=== PATIENT | female | born 1990 | race Caucasian/White ===

== ENCOUNTER 2016-07-23 05:50 | Emergency (ER) | payer MEDICAID, OTHER ==
[~2016-07-23] VITALS: Ht 162.6 cm; Wt 68.1 kg
[~2016-07-23 05:50] MED LIST: BENT20TA PO; IMIT25TA PO; ZOFR4TAB3 SL
[2016-07-23 05:55] VITALS: BP 111/78; PULSE 84; RESP 14; TEMP 98.3; O2SAT 98
[2016-07-23 06:01] VITALS: BP 111/78; PULSE 84; RESP 18; TEMP 98.3; O2SAT 98
[2016-07-23] MEDS ORDERED: SODIUM CHLOR 0.9% 1000 ML INJ 1,000 ML IV SCH (06:03)
--- NOTE | 2016-07-23 06:06 | PD ---
HPI Chief Complaint: GI Complaint Time Seen by Provider: 05:59 Travel History International Travel<30 days: No Contact w/Intl Traveler<30days: No Traveled to known affect area: No History of Present Illness HPI Patient is a 26 year old female who comes in complaining of nausea and vomiting. She says it started at 1AM and she has not been able to stop vomiting since then. She says she has no other symptoms. She denies abdominal pain, fevers, chills, diarrhea. She says her last bowel movement was last night and it was normal. She says this happens to her about once a year. She has been here before and had repeated episodes of leukocytosis. She saw hematology and they could not find a reason for this. She has no other medical issues. LMP was July 09. She denies dysuria. PFSH Past Medical History Arthritis: No Autoimmune Disease: No Blood Disorders: No Anxiety: No Depression: No Cancer: No Cardiovascular Problems: No Chemotherapy: No Cerebrovascular Accident: No Diabetes: No Diminished Hearing: No Endocrine: No Gastrointestinal Disorders: No GERD: No Glaucoma: No Genitourinary: No Hepatitis: No Hiatal Hernia: No Heparin Induced Thrombocytopen: No Hypertension: No Immune Disorder: No Implanted Vascular Access Dvce: No Kidney Stones: No Medical other: Yes (MIGRAINES) Musculoskeletal: No Psychiatric: No Reproductive: No Respiratory: No Migraines: Yes Radiation Therapy: No Renal Failure: No Sickle Cell Disease: No Thyroid Disease: No Ulcer: No Tetanus Vaccination: < 5 Years Influenza Vaccination: Yes ?: Unknown LMP: 07/09/16 Past Surgical History Abdominal Surgery: No AICD: No Appendectomy: Yes Arteriovenous Shunt: No Cardiac Surgery: No Cholecystectomy: No Ear Surgery: No Endocrine Surgery: No Eye Surgery: No Genitourinary Surgery: No Gynecologic Surgery: No Insulin Pump: No Joint Replacement: No Neurologic Surgery: No Oral Surgery: Yes (WISDOM TEETH REMOVED) Pacemaker: No Thoracic Surgery: No Tonsillectomy: Yes Other Surgery: Yes (SURGERY LT EYEBROW.) Social History Alcohol Use: Yes (occasionally) Tobacco Use: No Substance Use: No Allergies-Medications (Allergen,Severity, Reaction): Coded Allergies: Avocado (Verified Allergy, Severe, Anaphylaxis, 07/23/16) Reported Meds & Prescriptions Reported Meds & Active Scripts Active Zofran Odt (Ondansetron Odt) 4 Mg Tab 4 Mg SL Q6HR PRN Review of Systems Except as stated in HPI: all other systems reviewed are Neg General / Constitutional: No: Fever, Chills HENT: No: Headaches, Lightheadedness Cardiovascular: No: Chest Pain or Discomfort Respiratory: No: Shortness of Breath Gastrointestinal: Positive: Nausea, Vomiting, No: Diarrhea, Abdominal Pain Genitourinary: No: Dysuria Skin: No Rash, No Change in Pigmentation Neurologic: No: Weakness, Dizziness Physical Exam Narrative GENERAL: Awake and alert, in no acute distress. SKIN: Focused skin assessment warm/dry. HEAD: Atraumatic. Normocephalic. EYES: Pupils equal and round. No scleral icterus. ENT: Mucous membranes pink and moist. NECK: Trachea midline. No JVD. CARDIOVASCULAR: Regular rate and rhythm. No murmur appreciated. RESPIRATORY: No accessory muscle use. Clear to auscultation. Breath sounds equal bilaterally. GASTROINTESTINAL: Abdomen soft, non-tender, nondistended. No CVA tenderness. MUSCULOSKELETAL: No obvious deformities. No clubbing. No cyanosis. No edema. NEUROLOGICAL: Awake and alert. No obvious cranial nerve deficits. Motor grossly within normal limits. Normal speech. PSYCHIATRIC: Appropriate mood and affect; insight and judgment normal. Data Data Last Documented VS Vital Signs Date Time Temp Pulse Resp B/P Pulse Ox O2 Delivery O2 Flow Rate FiO2 07/23/16 08:10 65 18 98/50 98 07/23/16 06:07 Room Air 07/23/16 06:01 98.3 Orders Complete Blood Count With Diff (07/23/16 06:03) Comprehensive Metabolic Panel (07/23/16 06:03) Urinalysis - C+S If Indicated (07/23/16 06:03) Ua Includes Microscopic (07/23/16 06:03) Iv Access Insert/Monitor (07/23/16 06:03) Ecg Monitoring (07/23/16 06:03) Oximetry (07/23/16 06:03) Ondansetron Inj (Zofran Inj) (07/23/16 06:15) Sodium Chlor 0.9% 1000 Ml Inj (Ns 1000 M (07/23/16 06:03) Sodium Chloride 0.9% Flush (Ns Flush) (07/23/16 06:15) Ed Urine Pregnancytest Poc (07/23/16 06:03) Lipase (07/23/16 06:03) Ondansetron Inj (Zofran Inj) (07/23/16 07:15) Labs Laboratory Tests Test 07/23/16 07/23/16 06:15 06:50 White Blood Count 15.1 TH/MM3 Red Blood Count 5.17 MIL/MM3 Hemoglobin 14.6 GM/DL Hematocrit 44.0 % Mean Corpuscular Volume 85.1 FL Mean Corpuscular Hemoglobin 28.3 PG Mean Corpuscular Hemoglobin 33.3 % Concent Red Cell Distribution Width 13.0 % Platelet Count 317 TH/MM3 Mean Platelet Volume 8.2 FL Neutrophils (%) (Auto) 83.0 % Lymphocytes (%) (Auto) 9.8 % Monocytes (%) (Auto) 5.1 % Eosinophils (%) (Auto) 1.7 % Basophils (%) (Auto) 0.4 % Neutrophils # (Auto) 12.4 TH/MM3 Lymphocytes # (Auto) 1.5 TH/MM3 Monocytes # (Auto) 0.8 TH/MM3 Eosinophils # (Auto) 0.3 TH/MM3 Basophils # (Auto) 0.1 TH/MM3 CBC Comment AUTO DIFF Differential Comment AUTO DIFF CONFIRMED Sodium Level 144 MEQ/L Potassium Level 3.7 MEQ/L Chloride Level 108 MEQ/L Carbon Dioxide Level 28.4 MEQ/L Anion Gap 8 MEQ/L Blood Urea Nitrogen 12 MG/DL Creatinine 0.72 MG/DL Estimat Glomerular Filtration 98 ML/MIN Rate Random Glucose 121 MG/DL Calcium Level 9.3 MG/DL Total Bilirubin 0.2 MG/DL Aspartate Amino Transf 13 U/L (AST/SGOT) Alanine Aminotransferase 23 U/L (ALT/SGPT) Alkaline Phosphatase 81 U/L Total Protein 7.4 GM/DL Albumin 3.8 GM/DL Lipase 169 U/L Urine Collection Type CLEAN CATCH Urine Color YELLOW Urine Turbidity SLIGHT Urine pH 8.0 Urine Specific [place] 1.019 Urine Protein NEG mg/dL Urine Glucose (UA) NEG mg/dL Urine Ketones NEG mg/dL Urine Occult Blood NEG Urine Nitrite NEG Urine Bilirubin NEG Urine Leukocyte Esterase NEG Urine Squamous Epithelial 0-5 /hpf Cells Urine Amorphous Sediment MOD Microscopic Urinalysis Comment CULT NOT INDICATED Urine Collection Time 0650 MDM Medical Decision Making Medical Screen Exam Complete: Yes Emergency Medical Condition: Yes Medical Record Reviewed: Yes Differential Diagnosis Gastroenteritis versus gastritis versus pancreatitis Narrative Course Patient is a 26-year-old female comes in complaining of nausea and vomiting that started this morning. Exam shows no acute abnormalities, abdomen is soft and nontender. IV established, labs sent. Patient given IV fluids, Zofran. Labs show an elevated white blood cell count of 15, no other acute abnormalities. Patient still feeling nauseous. Given additional Zofran. Signed out to Dr. Munoz to assess for resolution of symptoms. Diagnosis Primary Impression: Nausea & vomiting Qualified Code: R11.2 - Non-intractable vomiting with nausea, unspecified vomiting type Patient Instructions: Acute Nausea and Vomiting (ED), General Instructions Additional Instructions: Drink plenty of fluids. If he fell hungry, eating a bland diet. Take Zofran as needed for nausea. Follow-up with your primary care doctor. Return to the ED as needed for any worsening symptoms. Scripts Ondansetron Odt (Zofran Odt)4 Mg Tab4 Mg SL Q6HR PRN (Nausea/Vomiting) #10 TAB Ref 0 Prov:Lucy Peacock MD 07/23/16 Disposition: 01 DISCHARGE HOME Condition: Stable Lucy Peacock MD Jul 23, 2016 06:06
[2016-07-23 06:07] VITALS: RESP 18; O2SAT 98
[2016-07-23] MEDS ORDERED: SODIUM CHLORIDE 0.9% FLUSH 10 ML FLUSH IV FLUSH PRN (06:15)
[2016-07-23] MEDS ORDERED: ONDANSETRON HCL 4 MG/2 ML VIAL IVP ONE (06:15)
[2016-07-23 06:31] LABS: AUTOMATED NEUTROPHIL # 12.4 TH/MM3 (1.8-7.7); BASOPHIL # 0.1 TH/MM3 (0-0.2); BASOPHIL % 0.4 % (0.0-2.0); EOSINOPHIL # 0.3 TH/MM3 (0-0.4); EOSINOPHIL % 1.7 % (0.0-4.0); LYMPH % 9.8 % (9.0-44.0); LYMPHOCYTE # 1.5 TH/MM3 (1.0-4.8); MEAN CELL VOLUME 85.1 FL (80.0-100.0); MEAN CORPUSCULAR HEMOGLOBIN 28.3 PG (27.0-34.0); MEAN CORPUSCULAR HGB CONC 33.3 % (32.0-36.0); MONO % 5.1 % (0.0-8.0); PLATELET COUNT 317 TH/MM3 (150-450); RED BLOOD COUNT 5.17 MIL/MM3 (4.00-5.30); WHITE BLOOD COUNT 15.1 TH/MM3 (4.0-11.0)
[2016-07-23 06:34] LABS: HEMO FLAGS AUTO DIFF
[2016-07-23 06:35] LABS: CHLORIDE 108 MEQ/L (98-107); POTASSIUM 3.7 MEQ/L (3.5-5.1); SODIUM (NA) 144 MEQ/L (136-145)
[2016-07-23 06:39] LABS: ANION GAP 8 MEQ/L (5-15); BICARBONATE 28.4 MEQ/L (21.0-32.0)
[2016-07-23 06:40] LABS: BLOOD UREA NITROGEN 12 MG/DL (7-18)
[2016-07-23 06:42] LABS: ALT (GPT) 23 U/L (10-53); AST (GOT) 13 U/L (15-37); GLOMERULAR FILTRATION RATE 98 ML/MIN (>89)
[2016-07-23 06:44] LABS: TOTAL BILIRUBIN ADULT 0.2 MG/DL (0.2-1.0)
[2016-07-23 06:45] LABS: ALKALINE PHOSPHATASE 81 U/L (45-117)
[2016-07-23 06:57] LABS: BLOOD, URINE NEG (NEG); GLUCOSE,URINE NEG (NEG); KETONE, URINE NEG (NEG); NITRITE,URINE NEG (NEG)
[2016-07-23 06:58] LABS: SCAN/DIFF AUTO DIFF CONFIRMED
[2016-07-23 07:01] LABS: METHOD OF COLLECTION CLEAN CATCH; URINE COLOR YELLOW (YELLW/STRAW)
[2016-07-23 07:03] LABS: COMMENT (UR) CULT NOT INDICATED; COMMENT2 (UR) MUCOUS PRESENT; CULTURE IF INDICATED CULT NOT INDICATED; SQUAMOUS EPITHELIAL CELL URINE 0-5 /hpf (0-5)
[2016-07-23] MEDS ORDERED: ZOFR4TAB3 SL (07:04)
[2016-07-23] MEDS ORDERED: ONDANSETRON HCL 4 MG/2 ML VIAL IV PUSH ONE (07:15)
--- NOTE | 2016-07-23 07:49 | PD ---
Data Data Last Documented VS Vital Signs Date Time Temp Pulse Resp B/P Pulse Ox O2 Delivery O2 Flow Rate FiO2 07/23/16 06:55 16 07/23/16 06:07 98 Room Air 07/23/16 06:01 98.3 84 111/78 Orders Complete Blood Count With Diff (07/23/16 06:03) Comprehensive Metabolic Panel (07/23/16 06:03) Urinalysis - C+S If Indicated (07/23/16 06:03) Ua Includes Microscopic (07/23/16 06:03) Iv Access Insert/Monitor (07/23/16 06:03) Ecg Monitoring (07/23/16 06:03) Oximetry (07/23/16 06:03) Ondansetron Inj (Zofran Inj) (07/23/16 06:15) Sodium Chlor 0.9% 1000 Ml Inj (Ns 1000 M (07/23/16 06:03) Sodium Chloride 0.9% Flush (Ns Flush) (07/23/16 06:15) Ed Urine Pregnancytest Poc (07/23/16 06:03) Lipase (07/23/16 06:03) Ondansetron Inj (Zofran Inj) (07/23/16 07:15) Labs Laboratory Tests Test 07/23/16 07/23/16 06:15 06:50 White Blood Count 15.1 TH/MM3 Red Blood Count 5.17 MIL/MM3 Hemoglobin 14.6 GM/DL Hematocrit 44.0 % Mean Corpuscular Volume 85.1 FL Mean Corpuscular Hemoglobin 28.3 PG Mean Corpuscular Hemoglobin 33.3 % Concent Red Cell Distribution Width 13.0 % Platelet Count 317 TH/MM3 Mean Platelet Volume 8.2 FL Neutrophils (%) (Auto) 83.0 % Lymphocytes (%) (Auto) 9.8 % Monocytes (%) (Auto) 5.1 % Eosinophils (%) (Auto) 1.7 % Basophils (%) (Auto) 0.4 % Neutrophils # (Auto) 12.4 TH/MM3 Lymphocytes # (Auto) 1.5 TH/MM3 Monocytes # (Auto) 0.8 TH/MM3 Eosinophils # (Auto) 0.3 TH/MM3 Basophils # (Auto) 0.1 TH/MM3 CBC Comment AUTO DIFF Differential Comment AUTO DIFF CONFIRMED Sodium Level 144 MEQ/L Potassium Level 3.7 MEQ/L Chloride Level 108 MEQ/L Carbon Dioxide Level 28.4 MEQ/L Anion Gap 8 MEQ/L Blood Urea Nitrogen 12 MG/DL Creatinine 0.72 MG/DL Estimat Glomerular Filtration 98 ML/MIN Rate Random Glucose 121 MG/DL Calcium Level 9.3 MG/DL Total Bilirubin 0.2 MG/DL Aspartate Amino Transf 13 U/L (AST/SGOT) Alanine Aminotransferase 23 U/L (ALT/SGPT) Alkaline Phosphatase 81 U/L Total Protein 7.4 GM/DL Albumin 3.8 GM/DL Lipase 169 U/L Urine Collection Type CLEAN CATCH Urine Color YELLOW Urine Turbidity SLIGHT Urine pH 8.0 Urine Specific [place] 1.019 Urine Protein NEG mg/dL Urine Glucose (UA) NEG mg/dL Urine Ketones NEG mg/dL Urine Occult Blood NEG Urine Nitrite NEG Urine Bilirubin NEG Urine Leukocyte Esterase NEG Urine Squamous Epithelial 0-5 /hpf Cells Urine Amorphous Sediment MOD Microscopic Urinalysis Comment CULT NOT INDICATED Urine Collection Time 0650 MDM Supervised Visit with KEYANNA: No Narrative Course 26-year-old woman with intermittent emesis of nausea vomiting here with the same. No abdominal pain. Looks well. Labs are unremarkable. Mild leukocytosis. On repeat assessment at 750, feeling improved. Likely cyclic vomiting syndrome versus abdominal migraines. Previous workups unremarkable. Recommend supportive treatment. Diagnosis Primary Impression: Nausea & vomiting Qualified Code: R11.2 - Non-intractable vomiting with nausea, unspecified vomiting type Patient Instructions: General Instructions, Acute Nausea and Vomiting (ED) Additional Instruction: Drink plenty of fluids. If he fell hungry, eating a bland diet. Take Zofran as needed for nausea. Follow-up with your primary care doctor. Return to the ED as needed for any worsening symptoms. Scripts Ondansetron Odt (Zofran Odt)4 Mg Tab4 Mg SL Q6HR PRN (Nausea/Vomiting) #10 TAB Ref 0 Prov:Lucy Peacock MD 07/23/16 Disposition: 01 DISCHARGE HOME Condition: Stable Narayan Munoz MD Jul 23, 2016 07:49
[2016-07-23 08:10] VITALS: BP 98/50
== END 2016-07-23 08:37 | disposition home or self-care (01) ==
LOC: PHED 05:50
DX: R11.2 Nausea with vomiting, unspecified (principal)
CPT/HCPCS: 80053; 81001; 83690; 84703; 85025; 96361; 96374; 96376; 99284; J2405; J7030

== ENCOUNTER 2016-10-31 14:01 | Emergency (ER) | payer OTHER, MEDICAID ==
[~2016-10-31] VITALS: Ht 162.6 cm; Wt 65.0 kg
[~2016-10-31 14:01] MED LIST changes: -BENT20TA PO; -IMIT25TA PO
[2016-10-31 14:03] VITALS: BP 124/86; PULSE 83; RESP 18; TEMP 98.8; O2SAT 97
[2016-10-31] MEDS ORDERED: SODIUM CHLOR 0.9% 1000 ML INJ 1,000 ML IV ONE (14:31)
--- NOTE | 2016-10-31 14:39 | PD ---
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 The patient states she has a history of irregular menstrual cycles, last menstrual cycle was September 12, 2016. The patient is a who has a 4-year-old child, currently trying to become . The patient states she missed her menstrual cycle in September, thought she might be starting her cycle soon then developed severe abdominal pain and bleeding today. The abdominal pain is located over the pelvic region, sharp, crampy, associated with vaginal bleeding. The patient states she had a large dark blood clot while at work, was concerned she may be experiencing a miscarriage. The patient feels cold, but otherwise denies any lightheadedness, dizziness, chest pain, shortness breath, or nausea. Symptoms are mild to moderate, there are no current alleviating or exacerbating factors. PFSH Past Medical History Arthritis: No Autoimmune Disease: No Blood Disorders: No Anxiety: No Depression: No Cancer: No Cardiovascular Problems: No Chemotherapy: No Cerebrovascular Accident: No Diabetes: No Diminished Hearing: No Endocrine: No Gastrointestinal Disorders: No GERD: No Glaucoma: No Genitourinary: No Hepatitis: No Hiatal Hernia: No Heparin Induced Thrombocytopen: No Hypertension: No Immune Disorder: No Implanted Vascular Access Dvce: No Kidney Stones: No Medical other: Yes (MIGRAINES) Musculoskeletal: No Psychiatric: No Reproductive: No Respiratory: No Migraines: Yes Radiation Therapy: No Renal Failure: No Sickle Cell Disease: No Thyroid Disease: No Ulcer: No ?: Unknown Past Surgical History Abdominal Surgery: No AICD: No Appendectomy: Yes Arteriovenous Shunt: No Cardiac Surgery: No Cholecystectomy: No Ear Surgery: No Endocrine Surgery: No Eye Surgery: No Genitourinary Surgery: No Gynecologic Surgery: No Insulin Pump: No Joint Replacement: No Neurologic Surgery: No Oral Surgery: Yes (WISDOM TEETH REMOVED) Pacemaker: No Thoracic Surgery: No Tonsillectomy: Yes Other Surgery: Yes (SURGERY LT EYEBROW.) Social History Alcohol Use: Yes (occasionally) Tobacco Use: No Substance Use: No Allergies-Medications (Allergen,Severity, Reaction): Coded Allergies: avocado (Verified Allergy, Severe, Anaphylaxis, 10/31/16) Reported Meds & Prescriptions Reported Meds & Active Scripts Active No Active Prescriptions or Reported Medications Review of Systems Except as stated in HPI: all other systems reviewed are Neg HENT: No: Lightheadedness Cardiovascular: No: Chest Pain or Discomfort Respiratory: No: Shortness of Breath Gastrointestinal: No: Nausea, Vomiting, Abdominal Pain Genitourinary: Positive: Pelvic Pain, Vaginal Bleeding, No: Dysuria Musculoskeletal: No: Weakness Neurologic: No: Dizziness Physical Exam Narrative GENERAL: Awake, alert, pleasant 26 year-old female appears her stated age and is in no acute respiratory distress. SKIN: Focused skin assessment warm/dry. HEAD: Atraumatic. Normocephalic. EYES: No injection or drainage. ENT: No nasal bleeding or discharge. Mucous membranes pink and moist. NECK: Trachea midline. No JVD. CARDIOVASCULAR: Regular rate and rhythm. No murmur appreciated. RESPIRATORY: No accessory muscle use. Clear to auscultation. Breath sounds equal bilaterally. GASTROINTESTINAL: Abdomen soft, mild suprapubic tenderness. Back: No CVA tenderness. Pelvic: The exam was performed in the presence of a female nurse. External examination reveals no rashes or lesions. Speculum examination reveals scant blood in the vaginal vault. Cervix was visualized, minimal blood at the cervical loss, no significant acute hemorrhage noted. MUSCULOSKELETAL: No obvious deformities. No clubbing. No cyanosis. No edema. NEUROLOGICAL: Awake and alert. No obvious cranial nerve deficits. Motor grossly within normal limits. Normal speech. PSYCHIATRIC: Appropriate mood and affect; insight and judgment normal. Data Data Last Documented VS Vital Signs Date Time Temp Pulse Resp B/P (MAP) Pulse Ox O2 Delivery O2 Flow Rate FiO2 10/31/16 15:13 81 17 112/65 (81) 98 Room Air 10/31/16 14:03 98.8 Orders Orders Beta Hcg (Quant/Titer) (10/31/16 14:31) Complete Blood Count With Diff (10/31/16 14:31) Basic Metabolic Panel (Bmp) (10/31/16 14:31) Iv Access Insert/Monitor (10/31/16 14:31) Ecg Monitoring (10/31/16 14:31) Sodium Chlor 0.9% 1000 Ml Inj (Ns 1000 M (10/31/16 14:31) Ondansetron Inj (Zofran Inj) (10/31/16 14:45) Ed Urine Pregnancytest Poc (10/31/16 14:31) Ketorolac Inj (Toradol Inj) (10/31/16 14:45) Morphine Inj (Morphine Inj) (10/31/16 14:45) Labs Laboratory Tests Test 10/31/16 14:55 White Blood Count 9.0 TH/MM3 Red Blood Count 4.56 MIL/MM3 Hemoglobin 13.4 GM/DL Hematocrit 39.8 % Mean Corpuscular Volume 87.2 FL Mean Corpuscular Hemoglobin 29.4 PG Mean Corpuscular Hemoglobin Concent 33.7 % Red Cell Distribution Width 13.1 % Platelet Count 253 TH/MM3 Mean Platelet Volume 7.9 FL Neutrophils (%) (Auto) 53.6 % Lymphocytes (%) (Auto) 32.3 % Monocytes (%) (Auto) 6.8 % Eosinophils (%) (Auto) 6.3 % Basophils (%) (Auto) 1.0 % Neutrophils # (Auto) 4.8 TH/MM3 Lymphocytes # (Auto) 2.9 TH/MM3 Monocytes # (Auto) 0.6 TH/MM3 Eosinophils # (Auto) 0.6 TH/MM3 Basophils # (Auto) 0.1 TH/MM3 CBC Comment DIFF FINAL Differential Comment Blood Urea Nitrogen 9 MG/DL Creatinine 0.69 MG/DL Random Glucose 88 MG/DL Calcium Level 8.8 MG/DL Sodium Level 141 MEQ/L Potassium Level 3.4 MEQ/L Chloride Level 108 MEQ/L Carbon Dioxide Level 27.2 MEQ/L Anion Gap 6 MEQ/L Estimat Glomerular Filtration Rate 103 ML/MIN Human Chorionic Gonadotropin, Quant LESS THAN 1 MIU/ML MDM Medical Decision Making Medical Screen Exam Complete: Yes Emergency Medical Condition: Yes Medical Record Reviewed: Yes Interpretation(s) Laboratory Tests Test 10/31/16 14:55 White Blood Count 9.0 TH/MM3 Red Blood Count 4.56 MIL/MM3 Hemoglobin 13.4 GM/DL Hematocrit 39.8 % Mean Corpuscular Volume 87.2 FL Mean Corpuscular Hemoglobin 29.4 PG Mean Corpuscular Hemoglobin Concent 33.7 % Red Cell Distribution Width 13.1 % Platelet Count 253 TH/MM3 Mean Platelet Volume 7.9 FL Neutrophils (%) (Auto) 53.6 % Lymphocytes (%) (Auto) 32.3 % Monocytes (%) (Auto) 6.8 % Eosinophils (%) (Auto) 6.3 % Basophils (%) (Auto) 1.0 % Neutrophils # (Auto) 4.8 TH/MM3 Lymphocytes # (Auto) 2.9 TH/MM3 Monocytes # (Auto) 0.6 TH/MM3 Eosinophils # (Auto) 0.6 TH/MM3 Basophils # (Auto) 0.1 TH/MM3 CBC Comment DIFF FINAL Differential Comment Blood Urea Nitrogen 9 MG/DL Creatinine 0.69 MG/DL Random Glucose 88 MG/DL Calcium Level 8.8 MG/DL Sodium Level 141 MEQ/L Potassium Level 3.4 MEQ/L Chloride Level 108 MEQ/L Carbon Dioxide Level 27.2 MEQ/L Anion Gap 6 MEQ/L Estimat Glomerular Filtration Rate 103 ML/MIN Human Chorionic Gonadotropin, Quant LESS THAN 1 MIU/ML Differential Diagnosis Differential diagnosis includes dysmenorrhea, menorrhagia, ectopic , , symptomatic anemia, coagulopathy. Narrative Course IV was established, labs are drawn and sent, and the patient was placed on cardiac telemetry monitoring and continuous pulse oximetry monitoring. Bedside UA test was obtained and quantitative beta hCG was sent to lab. A pelvic exam was performed in the presence of a female nurse. UA test was negative. Hemoglobin was normal at 13.4. Pelvic examination reveals scant blood in the vaginal vault, there is blood at the cervical os, but no significant acute hemorrhage noted. The patient's symptoms have improved, she will be discharged home on ibuprofen and is advised to follow-up with her quality intern if symptoms persist. Diagnosis Primary Impression: Vaginal bleeding Patient Instructions: General Instructions Additional Instructions: Follow-up with her quality intern if symptoms persist. Please provide a patient a copy of her labs at discharge. Return if symptoms worsen or progress. Med/Other Pt SpecificInfo: Prescription(s) given Scripts Ibuprofen (Ibuprofen) 600 Mg Tab 600 MG PO Q6H Y for Pain/Inflammation, #20 TAB 0 Refills Prov: Norberto Chun MD 10/31/16 Disposition: 01 DISCHARGE HOME Condition: Stable Norberto Chun MD Oct 31, 2016 14:39
[2016-10-31] MEDS ORDERED: KETOROLAC TROMETHAMINE 30 MG/ML (IVP) VIAL IV PUSH ONE (14:45)
[2016-10-31] MEDS ORDERED: ONDANSETRON HCL 4 MG/2 ML VIAL IVP ONE (14:45)
[2016-10-31] MEDS ORDERED: MORPHINE SULFATE 4 MG/ML INJ IV PUSH ONE (14:45)
[2016-10-31 15:08] LABS: AUTOMATED NEUTROPHIL # 4.8 TH/MM3 (1.8-7.7); BASOPHIL # 0.1 TH/MM3 (0-0.2); EOSINOPHIL # 0.6 TH/MM3 (0-0.4); EOSINOPHIL % 6.3 % (0.0-4.0); HEMATOCRIT 39.8 % (35.0-46.0); HEMO FLAGS DIFF FINAL; LYMPH % 32.3 % (9.0-44.0); LYMPHOCYTE # 2.9 TH/MM3 (1.0-4.8); MEAN CELL VOLUME 87.2 FL (80.0-100.0); MEAN CORPUSCULAR HEMOGLOBIN 29.4 PG (27.0-34.0); MEAN CORPUSCULAR HGB CONC 33.7 % (32.0-36.0); MONO % 6.8 % (0.0-8.0); NEUT % 53.6 % (16.0-70.0); PLATELET COUNT 253 TH/MM3 (150-450); RED BLOOD COUNT 4.56 MIL/MM3 (4.00-5.30); RED CELL DISTRIBUTION WIDTH 13.1 % (11.6-17.2)
[2016-10-31 15:13] VITALS: BP 112/65; PULSE 81; RESP 17; O2SAT 98
[2016-10-31 15:22] LABS: ANION GAP 6 MEQ/L (5-15); BICARBONATE 27.2 MEQ/L (21.0-32.0); BLOOD UREA NITROGEN 9 MG/DL (7-18); CHLORIDE 108 MEQ/L (98-107); GLOMERULAR FILTRATION RATE 103 ML/MIN (>89); POTASSIUM 3.4 MEQ/L (3.5-5.1); SODIUM (NA) 141 MEQ/L (136-145)
[2016-10-31 15:26] LABS: BETA HCG QUANT LESS THAN 1 MIU/ML (0-5)
[2016-10-31] MEDS ORDERED: IBUP-232 PO (15:51)
== END 2016-10-31 16:13 | disposition home or self-care (01) ==
LOC: NEPD 14:01
DX: N93.9 Abnormal uterine and vaginal bleeding, unspecified (principal); R10.2 Pelvic and perineal pain
CPT/HCPCS: 80048; 84702; 84703; 85025; 96361; 96374; 96375; 99284; J1885; J2270; J2405; J7030

== ENCOUNTER 2017-01-14 09:19 | Emergency (ER) | payer OTHER, MEDICAID ==
[~2017-01-14] VITALS: Ht 162.6 cm; Wt 66.4 kg
[~2017-01-14 09:19] MED LIST changes: +IBUP-232 PO; -ZOFR4TAB3 SL
[2017-01-14 09:34] VITALS: BP 125/62; PULSE 88; RESP 16; TEMP 98.5; O2SAT 100
--- NOTE | 2017-01-14 11:19 | PD ---
HPI Chief Complaint: Headache Time Seen by Provider: 11:02 Travel History International Travel<30 days: No Contact w/Intl Traveler<30days: No Traveled to known affect area: No History of Present Illness HPI Patient is a 27-year-old female with a history of recurrent migraines has not had a headache since 2013 presents emergency department for evaluation of one episode of nausea this morning followed by a headache. She states that she's not had a headache since of of her son in 2012, she is to be on Topamax for that but has not required since. The patient states she got up today She was feeling nauseous had one episode of nonbloody nonbilious emesis followed by onset of a headache. She states appears very similar to her previous headaches but this somewhat worse. Denies any fever head injury neck pain abdominal pain or possibility for . States she has symptoms are severe, throughout her entire head, so she would've numbness and tingling in her fingers which is normal for her. Context as above. PFSH Past Medical History Arthritis: No Autoimmune Disease: No Blood Disorders: No Anxiety: No Depression: No Cancer: No Cardiovascular Problems: No Chemotherapy: No Cerebrovascular Accident: No Diabetes: No Diminished Hearing: No Endocrine: No Gastrointestinal Disorders: No GERD: No Glaucoma: No Genitourinary: No Hepatitis: No Hiatal Hernia: No Heparin Induced Thrombocytopen: No Hypertension: No Immune Disorder: No Implanted Vascular Access Dvce: No Kidney Stones: No Musculoskeletal: No Psychiatric: No Reproductive: No Respiratory: No Migraines: Yes Radiation Therapy: No Renal Failure: No Sickle Cell Disease: No Thyroid Disease: No Ulcer: No Tetanus Vaccination: < 5 Years Influenza Vaccination: No ?: Unknown LMP: 12/28/16 Past Surgical History Abdominal Surgery: No AICD: No Appendectomy: Yes Arteriovenous Shunt: No Cardiac Surgery: No Cholecystectomy: No Ear Surgery: No Endocrine Surgery: No Eye Surgery: No Genitourinary Surgery: No Gynecologic Surgery: No Insulin Pump: No Joint Replacement: No Neurologic Surgery: No Oral Surgery: Yes (WISDOM TEETH REMOVED) Pacemaker: No Thoracic Surgery: No Tonsillectomy: Yes Other Surgery: Yes (SURGERY LT EYEBROW.) Social History Alcohol Use: Yes (occasionally) Tobacco Use: No Substance Use: No Allergies-Medications (Allergen,Severity, Reaction): Coded Allergies: avocado (Verified Allergy, Severe, Anaphylaxis, 01/14/17) Reported Meds & Prescriptions Reported Meds & Active Scripts Active No Active Prescriptions or Reported Medications Review of Systems Except as stated in HPI: all other systems reviewed are Neg Physical Exam Narrative GENERAL: Well-developed well-nourished appears uncomfortable. SKIN: Focused skin assessment warm/dry. HEAD: Atraumatic. Normocephalic. EYES: Pupils equal and round. No scleral icterus. No injection or drainage. ENT: No nasal bleeding or discharge. Mucous membranes pink and moist. NECK: Trachea midline. No JVD. CARDIOVASCULAR: Regular rate and rhythm. No murmur appreciated. RESPIRATORY: No accessory muscle use. Clear to auscultation. Breath sounds equal bilaterally. GASTROINTESTINAL: Abdomen soft, non-tender, nondistended. Hepatic and splenic margins not palpable. MUSCULOSKELETAL: No obvious deformities. No clubbing. No cyanosis. No edema. NEUROLOGICAL: Awake and alert. Cranial nerves II through XII grossly intact nonfocal, 5 out of 5 strength in all 4 extremities. Several testing negative. Ambulates with an even narrow based gait. No papilledema, no nuchal rigidity, Kernig's and Brudzinski signs negative per PSYCHIATRIC: Appropriate mood and affect; insight and judgment normal. Data Data Last Documented VS Vital Signs Date Time Temp Pulse Resp B/P (MAP) Pulse Ox O2 Delivery O2 Flow Rate FiO2 01/14/17 14:09 85 16 92/57 (69) 100 01/14/17 12:00 Room Air 01/14/17 09:34 98.5 Orders Orders Ecg Monitoring (01/14/17 11:16) Iv Access Insert/Monitor (01/14/17 11:16) Oximetry (01/14/17 11:16) Sodium Chloride 0.9% Flush (Ns Flush) (01/14/17 11:30) Ketorolac Inj (Toradol Inj) (01/14/17 11:30) Prochlorperazine Inj (Compazine Inj) (01/14/17 11:30) Diphenhydramine Inj (Benadryl Inj) (01/14/17 11:30) Sodium Chlorid 0.9% 500 Ml Inj (Ns 500 M (01/14/17 11:30) Ed Urine Pregnancytest Poc (01/14/17 11:18) Urinalysis - C+S If Indicated (01/14/17 11:18) Ed Discharge Order (01/14/17 13:22) Labs Laboratory Tests Test 01/14/17 11:40 Urine Collection Type CLEAN CATCH Urine Color YELLOW Urine Turbidity CLEAR Urine pH 8.0 Urine Specific [place] 1.027 Urine Protein NEG mg/dL Urine Glucose (UA) NEG mg/dL Urine Ketones NEG mg/dL Urine Occult Blood NEG Urine Nitrite NEG Urine Bilirubin NEG Urine Leukocyte Esterase NEG Urine WBC 0-2 /hpf Urine Squamous Epithelial Cells 0-5 /hpf Microscopic Urinalysis Comment CULT NOT INDICATED Urine Collection Time 11:40 [facility] Medical Decision Making Medical Screen Exam Complete: Yes Emergency Medical Condition: Yes Differential Diagnosis migraine headache, cluster headache, tension headache, subarachnoid hemorrhage highly unlikely, meningitis highly unlikely. Narrative Course Patient roomed emerged permit, given Benadryl Compazine and Toradol. Initial revisit patient still having some discomfort, she was feeling better but I recommended that she stay a little bit longer to make sure the pain medicine work. After an additional period to allow the medication to take effect, the patient states she had complete relief of headache would like to go home, do not appreciate any red flags for any sinister cause of her headache, recommended follow-up with primary care physician and discussed return to ED criteria. Diagnosis Primary Impression: Headache Qualified Codes: R51 - Headache Patient Instructions: Acute Headache (DC), General Instructions Scripts No Active Prescriptions or Reported Meds Disposition: 01 DISCHARGE HOME Condition: Stable Atul Ribeiro MD Jan 14, 2017 11:19
[2017-01-14] MEDS ORDERED: SODIUM CHLORIDE 0.9% FLUSH 10 ML FLUSH IVF PRN (11:30)
[2017-01-14] MEDS ORDERED: diphenhydrAMINE HCL 50 MG/ML VIAL IVP ONE (11:30)
[2017-01-14] MEDS ORDERED: PROCHLORPERAZINE INJ 10 MG/2 ML VIAL IVP ONE (11:30)
[2017-01-14] MEDS ORDERED: SODIUM CHLORID 0.9% 500 ML INJ 500 ML IV ONE (11:30)
[2017-01-14] MEDS ORDERED: KETOROLAC TROMETHAMINE 30 MG/ML (IVP) VIAL IVP ONE (11:30)
[2017-01-14 12:00] VITALS: O2SAT 100
[2017-01-14 12:22] LABS: BLOOD, URINE NEG (NEG); GLUCOSE,URINE NEG (NEG); KETONE, URINE NEG (NEG); NITRITE,URINE NEG (NEG)
[2017-01-14 12:28] LABS: METHOD OF COLLECTION CLEAN CATCH; URINE COLOR YELLOW (YELLW/STRAW)
[2017-01-14 12:29] LABS: COMMENT (UR) CULT NOT INDICATED; CULTURE IF INDICATED CULT NOT INDICATED; SQUAMOUS EPITHELIAL CELL URINE 0-5 /hpf (0-5); WBC, URINE 0-2 /hpf (0-5)
[2017-01-14 13:10] VITALS: RESP 16
[2017-01-14 14:09] VITALS: BP 92/57
== END 2017-01-14 14:12 | disposition home or self-care (01) ==
LOC: PHED 09:19
DX: R51 Headache (principal); R11.2 Nausea with vomiting, unspecified; Z86.69 Personal history of other diseases of the nervous system and sense organs
CPT/HCPCS: 81001; 84703; 96361; 96374; 96375; 99284; J0780; J1200; J1885; J7040

== ENCOUNTER 2017-05-14 15:43 | Emergency (ER) | payer MEDICAID, OTHER ==
[~2017-05-14] VITALS: Ht 162.6 cm; Wt 65.0 kg
[2017-05-14 15:51] VITALS: BP 112/59; PULSE 73; RESP 20
[2017-05-14] MEDS ORDERED: SODIUM CHLORIDE 0.9% FLUSH 10 ML FLUSH IVF PRN (16:15)
[2017-05-14] MEDS ORDERED: LORazepam 2 MG/ML VIAL IV PUSH ONE (16:15)
--- NOTE | 2017-05-14 16:17 | PD ---
HPI Chief Complaint: Fall Time Seen by Provider: 15:46 Travel History International Travel<30 days: No Contact w/Intl Traveler<30days: No Traveled to known affect area: No History of Present Illness HPI The patient was seen and examined in the presence of the nurse. This patient was in the shower and had a syncopal episode. She woke up on the ground. She became very anxious and panicky. She has history of anxiety problems. She then developed pins and needles in all 5 fingers in all 5 toes and in her lips and face. She does not have muscle weakness or sensory loss. She struck her head on the ground. She complains of posterior headache and neck pain. Duration 1 hour. No alleviating factors. No exacerbating factors. Symptoms severity is moderate. Paramedics brought her in on backboard. She does not take blood thinners PFS Past Medical History Arthritis: No Autoimmune Disease: No Blood Disorders: No Anxiety: No Depression: No Cancer: No Cardiovascular Problems: No Chemotherapy: No Cerebrovascular Accident: No Diabetes: No Diminished Hearing: No Endocrine: No Gastrointestinal Disorders: No GERD: No Glaucoma: No Genitourinary: No Hepatitis: No Hiatal Hernia: No Heparin Induced Thrombocytopen: No Hypertension: No Immune Disorder: No Implanted Vascular Access Dvce: No Kidney Stones: No Medical other: Yes (MIGRAINES) Musculoskeletal: No Psychiatric: No Reproductive: No Respiratory: No Migraines: Yes Radiation Therapy: No Renal Failure: No Sickle Cell Disease: No Thyroid Disease: No Ulcer: No ?: Unknown LMP: APRIL 23 Past Surgical History Abdominal Surgery: No AICD: No Appendectomy: Yes Arteriovenous Shunt: No Cardiac Surgery: No Cholecystectomy: No Ear Surgery: No Endocrine Surgery: No Eye Surgery: No Genitourinary Surgery: No Gynecologic Surgery: No Insulin Pump: No Joint Replacement: No Neurologic Surgery: No Oral Surgery: Yes (WISDOM TEETH REMOVED) Pacemaker: No Thoracic Surgery: No Tonsillectomy: Yes Other Surgery: Yes (SURGERY LT EYEBROW.) Social History Alcohol Use: Yes (occasionally) Tobacco Use: No Substance Use: Yes (marijuana) Allergies-Medications (Allergen,Severity, Reaction): Coded Allergies: avocado (Verified Allergy, Severe, Anaphylaxis, 01/14/17) Reported Meds & Prescriptions Reported Meds & Active Scripts Active No Active Prescriptions or Reported Medications Review of Systems General / Constitutional: No: Fever Eyes: No: Visual changes HENT: Positive: Headaches, Neck Pain Cardiovascular: Positive: Syncope, No: Chest Pain or Discomfort Respiratory: No: Shortness of Breath Gastrointestinal: No: Abdominal Pain Genitourinary: No: Dysuria Musculoskeletal: No: Pain Skin: No Rash Neurologic: Positive: Headache, Paresthesia, No: Weakness Psychiatric: Positive: Anxiety, No: Depression Endocrine: No: Polydipsia Hematologic/Lymphatic: No: Easy Bruising Physical Exam Narrative GENERAL: Well-nourished, well-developed patient who is immobilized . SKIN: Focused skin assessment reveals no rash and nodules. Skin is Warm and dry. HEAD: Atraumatic. Normocephalic. EYES: Pupils equal and round. No scleral icterus. No injection or drainage. ENT: No nasal bleeding or discharge. Mucous membranes pink and moist. NECK: Trachea midline. No JVD. Has some midline tenderness and c-collar is maintained. There is no erythema or bruising or swelling CARDIOVASCULAR: Regular rate and rhythm. No murmur appreciated. RESPIRATORY: No accessory muscle use. Clear to auscultation. Breath sounds equal bilaterally. GASTROINTESTINAL: Abdomen soft, non-tender, nondistended. Hepatic and splenic margins not palpable. MUSCULOSKELETAL: No obvious deformities. No clubbing. No cyanosis. No edema. NEUROLOGICAL: Awake and alert. No obvious cranial nerve deficits. Motor grossly within normal limits. Normal speech. PSYCHIATRIC: Anxious mood and affect; insight and judgment normal. Data Data Last Documented VS Vital Signs Date Time Temp Pulse Resp B/P (MAP) Pulse Ox O2 Delivery O2 Flow Rate FiO2 05/14/17 15:51 73 20 112/59 (76) Orders Orders Electrocardiogram (05/14/17 16:04) Basic Metabolic Panel (Bmp) (05/14/17 16:04) Ed Urine Pregnancytest Poc (05/14/17 16:04) Complete Blood Count With Diff (05/14/17 16:04) Ct Brain W/O Iv Contrast(Rout) (05/14/17 16:04) Ct Cerv Spine W/O Contrast (05/14/17 16:04) Ecg Monitoring (05/14/17 16:04) Iv Access Insert/Monitor (05/14/17 16:04) Oximetry (05/14/17 16:04) Sodium Chloride 0.9% Flush (Ns Flush) (05/14/17 16:15) Lorazepam Inj (Ativan Inj) (05/14/17 16:15) MDM Medical Decision Making Medical Screen Exam Complete: Yes Emergency Medical Condition: Yes Medical Record Reviewed: Yes Differential Diagnosis Syncope, cardiac arrhythmia, concussion, intracranial hemorrhage Narrative Course I have reviewed the patient's electronic medical record. I don't see any objective neurologic deficit. I suspect her for extremity paresthesias is due to I provided ventilation and anxiety. Also includes her face and lips. I've ordered CT of brain and C-spine I reviewed her EKG which is normal Extended cardiac monitoring reveals sinus rhythm without ectopy Lab studies sent Case will be checked out to the evening physician to assist with disposition. Scripts No Active Prescriptions or Reported Meds Anival Galdamez MD May 14, 2017 16:17
[2017-05-14 17:06] LABS: AUTOMATED NEUTROPHIL # 6.2 TH/MM3 (1.8-7.7); BASOPHIL # 0.1 TH/MM3 (0-0.2); BASOPHIL % 1.2 % (0.0-2.0); EOSINOPHIL # 0.2 TH/MM3 (0-0.4); EOSINOPHIL % 2.3 % (0.0-4.0); HEMATOCRIT 40.3 % (35.0-46.0); HEMOGLOBIN 13.8 GM/DL (11.6-15.3); LYMPH % 28.6 % (9.0-44.0); LYMPHOCYTE # 2.9 TH/MM3 (1.0-4.8); MEAN CELL VOLUME 85.9 FL (80.0-100.0); MEAN CORPUSCULAR HEMOGLOBIN 29.5 PG (27.0-34.0); MEAN CORPUSCULAR HGB CONC 34.3 % (32.0-36.0); MEAN PLATELET VOLUME 7.9 FL (7.0-11.0); MONO % 6.6 % (0.0-8.0); MONOCYTE # 0.7 TH/MM3 (0-0.9); NEUT % 61.3 % (16.0-70.0); PLATELET COUNT 283 TH/MM3 (150-450); RED BLOOD COUNT 4.69 MIL/MM3 (4.00-5.30); RED CELL DISTRIBUTION WIDTH 13.6 % (11.6-17.2); WHITE BLOOD COUNT 10.1 TH/MM3 (4.0-11.0)
[2017-05-14 17:38] VITALS: BP 104/63; PULSE 80; RESP 20; O2SAT 100
--- NOTE | 2017-05-14 17:44 | RADRPT ---
EXAM DATE/TIME: 05/14/2017 17:27 [facility] COMPARISON: No previous studies available for comparison. INDICATIONS : Trauma, syncope episode with fall today. RADIATION DOSE: 56.35 CTDIvol (mGy) MEDICAL HISTORY : None SURGICAL HISTORY : None. ENCOUNTER: Initial ACUITY: 1 day PAIN SCALE: 9/10 LOCATION: Bilateral head TECHNIQUE: Multiple contiguous axial images were obtained of the head. Using automated exposure control and adj ustment of the mA and/or kV according to patient size, radiation dose was kept as low as reasonably a chievable to obtain optimal diagnostic quality images. DICOM format image data is available electro nically for review and comparison. FINDINGS: CEREBRUM: The ventricles are normal for age. No evidence of midline shift, mass lesion, hemorrhage or acute in farction. No extra-axial fluid collections are seen. POSTERIOR FOSSA: The cerebellum and brainstem are intact. The 4th ventricle is midline. The cerebellopontine angle i s unremarkable. EXTRACRANIAL: The visualized portion of the orbits is intact. SKULL: The calvaria is intact. No evidence of skull fracture. CONCLUSION: Normal examination. Matt Hoyos MD on May 14, 2017 at 17:41 Board Certified Radiologist. This report was verified electronically.
[2017-05-14 17:45] LABS: BICARBONATE 23.8 MEQ/L (21.0-32.0); CALCIUM 9.1 MG/DL (8.5-10.1); CREATININE 0.6 MG/DL (0.50-1.00)
--- NOTE | 2017-05-14 17:53 | RADRPT ---
EXAM DATE/TIME: 05/14/2017 17:27 [facility] COMPARISON: No previous studies available for comparison. INDICATIONS : Trauma, syncopal episode with fall today. RADIATION DOSE: 16.42 CTDIvol (mGy) MEDICAL HISTORY : None SURGICAL HISTORY : None. ENCOUNTER: Initial ACUITY: 1 day PAIN SCALE: 7/10 LOCATION: Bilateral neck TECHNIQUE: Volumetric scanning of the cervical spine was performed. Multiplanar reconstructions in the sagittal, coronal and oblique axial planes were performed. Using automated exposure control and adjustment o f the mA and/or kV according to patient size, radiation dose was kept as low as reasonably achievable to obtain optimal diagnostic quality images. DICOM format image data is available electronically f or review and comparison. FINDINGS: VERTEBRAE: Normal vertebral body height. ALIGNMENT: No evidence of subluxation. C2-C3: The bony spinal canal is normal in size. No evidence of disc bulge or herniation. The neural forami na are bilaterally patent. C3-C4: The bony spinal canal is normal in size. No evidence of disc bulge or herniation. The neural forami na are bilaterally patent. C4-C5: The bony spinal canal is normal in size. No evidence of disc bulge or herniation. The neural forami na are bilaterally patent. C5-C6: The bony spinal canal is normal in size. No evidence of disc bulge or herniation. The neural forami na are bilaterally patent. C6-C7: The bony spinal canal is normal in size. No evidence of disc bulge or herniation. The neural forami na are bilaterally patent. C7-T1: The bony spinal canal is normal in size. No evidence of disc bulge or herniation. The neural forami na are bilaterally patent. CONCLUSION: Normal examination for a patient of this age. Nico Gardner MD on May 14, 2017 at 17:47 Board Certified Radiologist. This report was verified electronically.
--- NOTE | 2017-05-14 18:50 | PD ---
Physical Exam Narrative Patient was seen by ED physician and signed out to me. Data Data Last Documented VS Vital Signs Date Time Temp Pulse Resp B/P (MAP) Pulse Ox O2 Delivery O2 Flow Rate FiO2 05/14/17 17:38 80 20 104/63 (77) 100 Room Air Orders Orders Electrocardiogram (05/14/17 16:04) Basic Metabolic Panel (Bmp) (05/14/17 16:04) Ed Urine Pregnancytest Poc (05/14/17 16:04) Complete Blood Count With Diff (05/14/17 16:04) Ct Brain W/O Iv Contrast(Rout) (05/14/17 16:04) Ct Cerv Spine W/O Contrast (05/14/17 16:04) Ecg Monitoring (05/14/17 16:04) Iv Access Insert/Monitor (05/14/17 16:04) Oximetry (05/14/17 16:04) Sodium Chloride 0.9% Flush (Ns Flush) (05/14/17 16:15) Lorazepam Inj (Ativan Inj) (05/14/17 16:15) Labs Laboratory Tests Test 05/14/17 16:25 White Blood Count 10.1 TH/MM3 Red Blood Count 4.69 MIL/MM3 Hemoglobin 13.8 GM/DL Hematocrit 40.3 % Mean Corpuscular Volume 85.9 FL Mean Corpuscular Hemoglobin 29.5 PG Mean Corpuscular Hemoglobin Concent 34.3 % Red Cell Distribution Width 13.6 % Platelet Count 283 TH/MM3 Mean Platelet Volume 7.9 FL Neutrophils (%) (Auto) 61.3 % Lymphocytes (%) (Auto) 28.6 % Monocytes (%) (Auto) 6.6 % Eosinophils (%) (Auto) 2.3 % Basophils (%) (Auto) 1.2 % Neutrophils # (Auto) 6.2 TH/MM3 Lymphocytes # (Auto) 2.9 TH/MM3 Monocytes # (Auto) 0.7 TH/MM3 Eosinophils # (Auto) 0.2 TH/MM3 Basophils # (Auto) 0.1 TH/MM3 CBC Comment DIFF FINAL Differential Comment Blood Urea Nitrogen 11 MG/DL Creatinine 0.60 MG/DL Random Glucose 88 MG/DL Calcium Level 9.1 MG/DL Sodium Level 141 MEQ/L Potassium Level 3.4 MEQ/L Chloride Level 111 MEQ/L Carbon Dioxide Level 23.8 MEQ/L Anion Gap 6 MEQ/L Estimat Glomerular Filtration Rate 120 ML/MIN [facility] Supervised Visit with KEYANNA: No Interpretation(s) Last Impressions Head CT 05/14/17 1604 Signed Impressions: Service Date/Time: Sunday, May 14, 2017 17:27 - CONCLUSION: Normal examination. Matt Hoyos MD Cervical Spine CT 05/14/17 1604 Signed Impressions: Service Date/Time: Sunday, May 14, 2017 17:27 - CONCLUSION: Normal examination for a patient of this age. Nico Gardner MD 1846 PM. CBC within normal limits. Potassium 3.4. Diagnosis Primary Impression: Syncope Qualified Codes: R55 - Syncope and collapse Additional Impressions: Closed head injury Qualified Codes: S09.90XA - Unspecified injury of head, initial encounter Cervical strain Qualified Codes: S16.1XXA - Strain of muscle, fascia and tendon at neck level , initial encounter Patient Instructions: General Instructions Additional Instruction: Head trauma instructions given. Med/Other Pt SpecificInfo: Prescription(s) given Scripts No Active Prescriptions or Reported Meds Disposition: 01 DISCHARGE HOME Condition: Stable Maksim Rolon MD May 14, 2017 18:50
[2017-05-14] MEDS ORDERED: TRAM50 PO (18:53)
[2017-05-14] MEDS ORDERED: IBUP-232 PO (18:53)
[2017-05-14] MEDS ORDERED: ROBA750T PO (18:53)
--- NOTE | 2017-05-14 18:53 | PD ---
Physical Exam Narrative Patient was seen by ED physician and signed out to me. Data Data Last Documented VS Vital Signs Date Time Temp Pulse Resp B/P (MAP) Pulse Ox O2 Delivery O2 Flow Rate FiO2 05/14/17 17:38 80 20 104/63 (77) 100 Room Air Orders Orders Electrocardiogram (05/14/17 16:04) Basic Metabolic Panel (Bmp) (05/14/17 16:04) Ed Urine Pregnancytest Poc (05/14/17 16:04) Complete Blood Count With Diff (05/14/17 16:04) Ct Brain W/O Iv Contrast(Rout) (05/14/17 16:04) Ct Cerv Spine W/O Contrast (05/14/17 16:04) Ecg Monitoring (05/14/17 16:04) Iv Access Insert/Monitor (05/14/17 16:04) Oximetry (05/14/17 16:04) Sodium Chloride 0.9% Flush (Ns Flush) (05/14/17 16:15) Lorazepam Inj (Ativan Inj) (05/14/17 16:15) Labs Laboratory Tests Test 05/14/17 16:25 White Blood Count 10.1 TH/MM3 Red Blood Count 4.69 MIL/MM3 Hemoglobin 13.8 GM/DL Hematocrit 40.3 % Mean Corpuscular Volume 85.9 FL Mean Corpuscular Hemoglobin 29.5 PG Mean Corpuscular Hemoglobin Concent 34.3 % Red Cell Distribution Width 13.6 % Platelet Count 283 TH/MM3 Mean Platelet Volume 7.9 FL Neutrophils (%) (Auto) 61.3 % Lymphocytes (%) (Auto) 28.6 % Monocytes (%) (Auto) 6.6 % Eosinophils (%) (Auto) 2.3 % Basophils (%) (Auto) 1.2 % Neutrophils # (Auto) 6.2 TH/MM3 Lymphocytes # (Auto) 2.9 TH/MM3 Monocytes # (Auto) 0.7 TH/MM3 Eosinophils # (Auto) 0.2 TH/MM3 Basophils # (Auto) 0.1 TH/MM3 CBC Comment DIFF FINAL Differential Comment Blood Urea Nitrogen 11 MG/DL Creatinine 0.60 MG/DL Random Glucose 88 MG/DL Calcium Level 9.1 MG/DL Sodium Level 141 MEQ/L Potassium Level 3.4 MEQ/L Chloride Level 111 MEQ/L Carbon Dioxide Level 23.8 MEQ/L Anion Gap 6 MEQ/L Estimat Glomerular Filtration Rate 120 ML/MIN MDM Supervised Visit with KEYANNA: Yes Narrative Course 27-year-old female with syncope and head and neck injury. Diagnosis Primary Impression: Syncope Qualified Codes: R55 - Syncope and collapse Additional Impressions: Cervical strain Qualified Codes: S16.1XXA - Strain of muscle, fascia and tendon at neck level , initial encounter Closed head injury Qualified Codes: S09.90XA - Unspecified injury of head, initial encounter Patient Instructions: General Instructions Additional Instruction: Head trauma instructions given. Scripts Tramadol (Ultram) 50 Mg Tab 50 MG PO Q6H Y for PAIN, #20 TAB 0 Refills Prov: Maksim Rolon MD 05/14/17 Methocarbamol (Robaxin) 750 Mg Tab 750 MG PO QID for Muscle Spasm, #40 TAB 0 Refills Prov: Maksim Rolon MD 05/14/17 Ibuprofen (Ibuprofen) 600 Mg Tab 600 MG PO TID for Pain, #60 TAB 0 Refills Prov: Maksim Rolon MD 05/14/17 Disposition: 01 DISCHARGE HOME Condition: Stable Maksim Rolon MD May 14, 2017 18:53
--- NOTE | 2017-05-15 12:16 | EKG ---
Date Performed: 05/14/2017 Time Performed: 16:04:58 PTAGE: 27 years EKG: Sinus rhythm WITH SHORT WY INTERVAL INCOMPLETE RIGHT BUNDLE BRANCH BLOCK BORDERLINE ECG NO PREVIOUS TRACING DOCTOR: Zacarias Saxena Interpretating Date/Time 05/15/2017 12:13:24
== END 2017-05-14 19:28 | disposition home or self-care (01) ==
LOC: NEPD 15:43
DX: R55 Syncope and collapse (principal); S09.90XA Unspecified injury of head, initial encounter; S16.1XXA Strain of muscle, fascia and tendon at neck level, initial encounter; W19.XXXA Unspecified fall, initial encounter; Y93.E1 Activity, personal bathing and showering; F41.9 Anxiety disorder, unspecified; F12.90 Cannabis use, unspecified, uncomplicated
CPT/HCPCS: 70450; 72125; 80048; 84703; 85025; 93005; 96374; 99285; J2060

== ENCOUNTER 2017-05-20 22:12 | Emergency (ER) | payer MEDICAID ==
[~2017-05-20] VITALS: Ht 162.6 cm; Wt 68.2 kg
[~2017-05-20 22:12] MED LIST changes: +ROBA750T PO; +TRAM50 PO
[2017-05-20 22:25] VITALS: BP 113/60; PULSE 93; RESP 18; TEMP 98.7; O2SAT 99
[2017-05-20] MEDS ORDERED: oxyCODONE/ACETAMINOPHEN 5 MG/325 MG TAB PO ONE (22:45)
--- NOTE | 2017-05-20 22:45 | PD ---
HPI Chief Complaint: knee pain Time Seen by Provider: 22:35 Travel History International Travel<30 days: No Contact w/Intl Traveler<30days: No Traveled to known affect area: No History of Present Illness HPI Patient is a 27-year-old female who presents to emergency with complaints of right-sided knee pain. Patient reports that she was at work today, reports that she tripped on sauce which was on the ground and then fell onto her right knee. Patient denies any trauma to head or neck, patient complains of right knee pain. Patient with no other complaints at this time. PFSH Past Medical History Arthritis: No Autoimmune Disease: No Blood Disorders: No Anxiety: No Depression: No Cancer: No Cardiovascular Problems: No Chemotherapy: No Cerebrovascular Accident: No Diabetes: No Diminished Hearing: No Endocrine: No Gastrointestinal Disorders: No GERD: No Glaucoma: No Genitourinary: No Hepatitis: No Hiatal Hernia: No Heparin Induced Thrombocytopen: No Hypertension: No Immune Disorder: No Implanted Vascular Access Dvce: No Kidney Stones: No Musculoskeletal: No Psychiatric: No Reproductive: No Respiratory: No Migraines: Yes Radiation Therapy: No Renal Failure: No Sickle Cell Disease: No Thyroid Disease: No Ulcer: No Past Surgical History Abdominal Surgery: No AICD: No Appendectomy: Yes Arteriovenous Shunt: No Cardiac Surgery: No Cholecystectomy: No Ear Surgery: No Endocrine Surgery: No Eye Surgery: No Genitourinary Surgery: No Gynecologic Surgery: No Insulin Pump: No Joint Replacement: No Neurologic Surgery: No Oral Surgery: Yes (WISDOM TEETH REMOVED) Pacemaker: No Thoracic Surgery: No Tonsillectomy: Yes Other Surgery: Yes (SURGERY LT EYEBROW.) Social History Alcohol Use: Yes (occasionally) Tobacco Use: No Substance Use: Yes (marijuana) Allergies-Medications (Allergen,Severity, Reaction): Coded Allergies: avocado (Verified Allergy, Severe, Anaphylaxis, 05/20/17) Reported Meds & Prescriptions Reported Meds & Active Scripts Active No Active Prescriptions or Reported Medications Review of Systems General / Constitutional: No: Fever Eyes: No: Visual changes HENT: No: Headaches Cardiovascular: No: Chest Pain or Discomfort Respiratory: No: Shortness of Breath Gastrointestinal: No: Abdominal Pain Genitourinary: No: Dysuria Musculoskeletal: Positive: Pain (right knee) Skin: No Rash Neurologic: No: Weakness Psychiatric: No: Depression Endocrine: No: Polydipsia Hematologic/Lymphatic: No: Easy Bruising Physical Exam Narrative GENERAL: Well-nourished, well-developed patient. SKIN: Focused skin assessment warm/dry. HEAD: Normocephalic. EYES: No scleral icterus. No injection or drainage. NECK: Supple, trachea midline. No JVD or lymphadenopathy. CARDIOVASCULAR: Regular rate and rhythm without murmurs, gallops, or rubs. RESPIRATORY: Breath sounds equal bilaterally. No accessory muscle use. GASTROINTESTINAL: Abdomen soft, non-tender, nondistended. MUSCULOSKELETAL: No cyanosis, or edema. Patient with pain with range of motion to the right knee, no obvious open fracture, pulses intact, neurovascular intact BACK: Nontender without obvious deformity. No CVA tenderness. Data Data Last Documented VS Vital Signs Date Time Temp Pulse Resp B/P (MAP) Pulse Ox O2 Delivery O2 Flow Rate FiO2 05/20/17 22:46 16 05/20/17 22:25 98.7 93 113/60 (77) 99 Orders Orders Knee, Complete (4vws) (05/20/17 ) Oxycodone-Acetamin 5-325 Mg (Percocet (05/20/17 22:45) ^ Knee Immobilizer (05/20/17 23:17) MDM Medical Decision Making Medical Screen Exam Complete: Yes Emergency Medical Condition: Yes Medical Record Reviewed: Yes Interpretation(s) Vital Signs Date Time Temp Pulse Resp B/P (MAP) Pulse Ox O2 Delivery O2 Flow Rate FiO2 05/20/17 22:25 98.7 93 18 113/60 (77) 99 Differential Diagnosis Knee sprain versus fracture Narrative Course Last Impressions Knee X-Ray 05/20/17 0000 Signed Impressions: Service Date/Time: Saturday, May 20, 2017 22:50 - CONCLUSION: Negative. Adria Hong MD FACR X-ray of the knee with no acute fracture. Patient with most likely sprain to the right knee. Plan to have patient follow up with orthopedic surgeon as outpatient. Will place in knee immobilizer Diagnosis Primary Impression: Right knee sprain Qualified Codes: S83.91XA - Sprain of unspecified site of right knee, initial encounter Patient Instructions: General Instructions, Narcotic given in the ED Additional Instructions: Please provide patient with a copy of her xray at discharge Please follow up with your primary care doctor in 2-3 days Return to the ER if symptoms worsen or progress Return to the ER as needed Rest/Ice and elevate your right lower extremity Med/Other Pt SpecificInfo: Prescription(s) given Scripts Oxycodone-Acetaminophen (Percocet) 5-325 mg Tab 1 TAB PO Q6H Y for PAIN, #10 TAB 0 Refills Prov: Jazmin Lino DO 05/20/17 Ibuprofen (Ibuprofen) 600 Mg Tab 600 MG PO Q6H Y for Pain/Inflammation, #40 TAB 0 Refills Prov: Jazmin Lino DO 05/20/17 Disposition: 01 DISCHARGE HOME Condition: Stable Jazmin Lino DO May 20, 2017 22:45
--- NOTE | 2017-05-20 23:11 | RADRPT ---
EXAM DATE/TIME: 05/20/2017 22:50 [facility] COMPARISON: No previous studies available for comparison. INDICATIONS : Right knee pain after slipping and falling today. MEDICAL HISTORY : None. SURGICAL HISTORY : None. ENCOUNTER: Initial ACUITY: 1 day PAIN SCORE: 10/10 LOCATION: Right lateral knee. FINDINGS: Four view examination of the right knee demonstrates no evidence of fracture or dislocation. Bony mi neralization is normal. The articular surfaces are intact. The suprapatellar soft tissues have a no rmal configuration. CONCLUSION: Negative. Adria Hong MD FACR on May 20, 2017 at 23:08 Board Certified Radiologist. This report was verified electronically.
[2017-05-20] MEDS ORDERED: IBUP-232 PO (23:22)
[2017-05-20] MEDS ORDERED: PERC5TAB12 PO (23:22)
[2017-05-21 00:17] VITALS: BP 113/77
== END 2017-05-21 00:22 | disposition home or self-care (01) ==
LOC: PHED 22:12
DX: S83.91XA Sprain of unspecified site of right knee, initial encounter (principal); F12.90 Cannabis use, unspecified, uncomplicated; W01.0XXA Fall on same level from slipping, tripping and stumbling without subsequent striking against object, initial encounter; Y99.0 Civilian activity done for income or pay
CPT/HCPCS: 73564; 99283; E0113

== ENCOUNTER 2017-07-29 12:46 | Emergency (ER) | payer OTHER, MEDICAID ==
[~2017-07-29 12:46] MED LIST changes: +PERC5TAB12 PO; -ROBA750T PO; -TRAM50 PO
[2017-07-29 12:51] VITALS: BP 114/59; PULSE 84; RESP 20; TEMP 98.1; O2SAT 100
[2017-07-29] MEDS ORDERED: ROBA500T PO (13:08)
--- NOTE | 2017-07-29 13:14 | PD ---
HPI Chief Complaint: Back/ Neck Pain or Injury Time Seen by Provider: 13:03 Travel History International Travel<30 days: No Contact w/Intl Traveler<30days: No Traveled to known affect area: No History of Present Illness HPI 27-year-old female with a history of back injury presents emergency department complaining of low back pain that started 2 days ago. Patient says she woke up yesterday and could not tolerate the pain since she decided to come in today for evaluation. Since yesterday she woke up with the pain and is sharp. Says that when she leans forward the pain is somewhat relieved but worsens with standing straight up. She also has associated radicular pain going down her left leg with standing straight up. Says that she is due for multiple surgeries on her right knee and believes this may be the reason why she is having pain today. She denies direct trauma. Says that she started doing light weight bearing on July 12 and this likely started her pain. She says that she has a known history of 3 herniated disks in her back and neck but went to therapy did not have any subsequent issues. Denies fevers, loss of bowel or bladder function, saddle anesthesia, IV drug use, direct trauma. Her surgery for knee is August 10 and she was told she may not have any steroids or anti- inflammatories leading up to the surgery. PFSH Past Medical History Arthritis: No Autoimmune Disease: No Blood Disorders: No Anxiety: No Depression: No Cancer: No Cardiovascular Problems: No Chemotherapy: No Cerebrovascular Accident: No Diabetes: No Diminished Hearing: No Endocrine: No Gastrointestinal Disorders: No GERD: No Glaucoma: No Genitourinary: No Hepatitis: No Hiatal Hernia: No Heparin Induced Thrombocytopen: No Hypertension: No Immune Disorder: No Implanted Vascular Access Dvce: No Kidney Stones: No Medical other: Yes (MIGRAINES) Musculoskeletal: Yes (acl torn herniated disc) Psychiatric: No Reproductive: No Respiratory: No Immunizations Current: Yes Migraines: Yes Radiation Therapy: No Renal Failure: No Sickle Cell Disease: No Thyroid Disease: No Ulcer: No Tetanus Vaccination: < 5 Years Influenza Vaccination: No ?: Not LMP: NOW : 3 Para: 1 Miscarriage: 2 Past Surgical History Abdominal Surgery: No AICD: No Appendectomy: Yes Arteriovenous Shunt: No Cardiac Surgery: No Cholecystectomy: No Ear Surgery: No Endocrine Surgery: No Eye Surgery: No Genitourinary Surgery: No Gynecologic Surgery: No Insulin Pump: No Joint Replacement: No Neurologic Surgery: No Oral Surgery: Yes (WISDOM TEETH REMOVED) Pacemaker: No Thoracic Surgery: No Tonsillectomy: Yes Other Surgery: Yes (SURGERY LT EYEBROW.) Social History Alcohol Use: Yes (occasionally) Tobacco Use: No Substance Use: No (marijuana not now) Allergies-Medications (Allergen,Severity, Reaction): Coded Allergies: avocado (Verified Allergy, Severe, Anaphylaxis, 07/29/17) Reported Meds & Prescriptions Reported Meds & Active Scripts Active Tramadol (Tramadol HCl) 50 Mg Tab 50 Mg PO Q8H PRN 3 Days Robaxin (Methocarbamol) 500 Mg Tab 500 Mg PO TID 5 Days Review of Systems Except as stated in HPI: all other systems reviewed are Neg Physical Exam Narrative GENERAL: Well-developed, well-nourished in moderate distress SKIN: Focused skin assessment warm/dry. HEAD: Atraumatic. Normocephalic. EYES: Pupils equal and round. No scleral icterus. No injection or drainage. ENT: No nasal bleeding or discharge. Mucous membranes pink and moist. NECK: Trachea midline. No JVD. MUSCULOSKELETAL: No obvious deformities. No clubbing. No cyanosis. No edema. Right leg in knee immobilizer BACK: No CVA tenderness. No rash. No point tenderness on palpation of the spine. Significant tenderness to palpation bilateral lower paraspinous musculature of the lumbar spine with associated muscle spasms. This reproduces her pain. NEUROLOGICAL: Awake and alert. No obvious cranial nerve deficits. Motor grossly within normal limits. Normal speech. Bilateral lower extremities with focal deficits PSYCHIATRIC: Appropriate mood and affect; insight and judgment normal. Data Data Last Documented VS Vital Signs Date Time Temp Pulse Resp B/P (MAP) Pulse Ox O2 Delivery O2 Flow Rate FiO2 07/29/17 12:51 98.1 84 20 114/59 (77) 100 Orders Orders Orphenadrine Inj (Norflex Inj) (07/29/17 13:15) Ed Discharge Order (07/29/17 13:23) MDM Medical Decision Making Medical Screen Exam Complete: Yes Emergency Medical Condition: Yes Differential Diagnosis lumbago, sciatica, muscle spasms, strain, sprain, fracture, cauda equina syndrome Narrative Course 27-year-old female presents emergency department for evaluation of low back pain that started 2 days ago. Pain worsened yesterday so she decided to come in today for evaluation and she was told she cannot take prednisone or anti- inflammatories leading up to her knee surgery on August 10. She denies direct trauma to the back. Says that she recently started performing light weightbearing of her right leg after a period of inactivity and believes this may have caused her symptoms. Physical exam findings consistent with muscle spasms of the back. No red flag signs or symptoms. Patient given Norflex in the emergency department today. Discharge with Robaxin. Pt says her pain is not improved with Norflex. Trial of tramadol outpatient. EFORSCE reviewed. Advised to follow-up with her primary care physician. Return for worsening or persistent symptoms. Diagnosis Primary Impression: Muscle spasm Referrals: Primary Care Physician Patient Instructions: General Instructions, Muscle Spasm (ED) Additional Instructions: Perform light stretches of the lower back and legs, and alternate heat and ice packs. If you develop increased pain, weakness, fever, chills, or bowel or bladder issues, return to the ED for further treatment and evaluation. Follow up with your primary care physician in 2-3 days. Scripts Tramadol (Tramadol) 50 Mg Tab 50 MG PO Q8H Y for PAIN for 3 Days, #9 TAB 0 Refills Prov: Maksim Rolon MD 07/29/17 Methocarbamol (Robaxin) 500 Mg Tab 500 MG PO TID for Muscle Spasm for 5 Days, TAB 0 Refills Prov: Maksim Rolon MD 07/29/17 Disposition: 01 DISCHARGE HOME Condition: Stable Catherine Doyle Jul 29, 2017 13:14
[2017-07-29] MEDS ORDERED: ORPHENADRINE INJ 60 MG/2 ML AMP IM ONE (13:15)
[2017-07-29] MEDS ORDERED: TRAM50TA PO (13:50)
== END 2017-07-29 14:01 | disposition home or self-care (01) ==
LOC: PHEFT 12:46
DX: M62.838 Other muscle spasm (principal); M54.5 Low back pain
CPT/HCPCS: 96372; 99283; J2360